=== PATIENT | female | born 1985 | race Two or more races ===

== ENCOUNTER 2021-10-13 16:20 | Emergency (ER) | payer MEDICAID, OTHER ==
[~2021-10-13] VITALS: Ht 154.9 cm; Wt 54.0 kg
[2021-10-13 17:03] VITALS: BP 116/73
[2021-10-13] MEDS ORDERED: METH500T22 PO (17:51)
[2021-10-13] MEDS ORDERED: IBUP600T27 PO (17:51)
== END 2021-10-13 18:00 | disposition home or self-care (01) ==
LOC: ER 16:20
DX: S39.012A Strain of muscle, fascia and tendon of lower back, initial encounter (principal); S83.92XA Sprain of unspecified site of left knee, initial encounter; Z79.1 Long term (current) use of non-steroidal anti-inflammatories (NSAID); Z79.899 Other long term (current) drug therapy; V49.49XA Driver injured in collision with other motor vehicles in traffic accident, initial encounter; Y93.89 Activity, other specified; Y92.89 Other specified places as the place of occurrence of the external cause; Y99.8 Other external cause status
CPT/HCPCS: 72100